=== PATIENT | female | born 1990 | race Hispanic/Latino ===

== ENCOUNTER 2019-04-09 22:04 | Emergency (ER) | payer OTHER ==
[~2019-04-09] VITALS: Ht 160 cm; Wt 53.1 kg
== END 2019-04-10 00:03 | disposition home or self-care (01) ==
LOC: ED 22:04
DX: O20.9 Hemorrhage in early pregnancy, unspecified (principal); Z3A.01 Less than 8 weeks gestation of pregnancy
CPT/HCPCS: 84702; 84703; 85025; 86900; 86901; 99284

== ENCOUNTER 2022-05-10 05:50 | Day surgery (SDC) | payer OTHER ==
--- NOTE | ~2022-05-10 | OR ---
[facility] [address] [facility] [place], [place] [address] Cancelled DICTATION CUT OFF, SEE TYPED OP REPORT /[id number] Copies: ~ PATIENT NAME: AYDE JOHNSON OPERATIVE REPORT DATE OF : 89 REPORT #: [id number] PHYSICIAN: JOSE BATISTA DO PCP: ABY CORNELIUS PA-C REPORT IS CONFIDENTIAL AND NOT TO BE RELEASED WITHOUT AUTHORIZATION
--- NOTE | 2022-05-10 08:31 | NUR ---
05/10/22 0831 Bing Henning 0757- PT ARRIVES TO PACU NONAROUSABLE TO STIMULI WITH AN OPA IN PLACE. RESP EVEN AND UNLABORED. OXYGEN SAT HIGH 90'S TO 100% ON 6L VIA MASK. 0801- PT NEEDING A JAW LIFT TO MAINTAIN PATENT AIRWAY. 0802- PT RESPONSIVE TO STIMULI. INSTRUCTED PT TO OPEN HER MOUTH TO REMOVE THE OPA. PT NEEDS TO BE TOLD THIS COMMAND A COUPLE OF TIMES BEFORE SHE WAS ABLE TO OPEN HER MOUTH TO REMOVE THE OPA. OXYGEN MASK REPLACED AT 6L. 0805- PT IS UPSET AND CRYING. HEART RATE INCREASING INTO THE 140'S TO 150'S. BP INCREASING INTO THE 110'S SYSTOLIC. 0806- OXYGEN TITRATED OFF. 0807- MD AND DRONE SOFTWARE DEVELOPMENT ENGINEER AT THE BEDSIDE TO SEE PT. NO NEW ORDERS AT THIS TIME. TALKING WITH PT ABOUT THE CASE. 0816- PT REMAINS CRYING OFF AND ON. ATTEMPTING TO CALM AND CONSOLE PT. PT HAS NO REQUESTS AT THIS TIME. PT STATES SHE IS NOT PHYSICALLY HURTING, STATES SHE IS UPSET.
== END 2022-05-10 09:10 | disposition home or self-care (01) ==
LOC: OPS 05:50 → DS 05:50 → OPS 07:30 → DS 12:30
PROVIDERS: ATTEND Obstetrics & Gynecology
PROC: 10D17ZZ Extraction of Products of Conception, Retained, Via Natural or Artificial Opening (ICD-10-PCS; principal; 2022-05-10 07:30)
DX: O02.1 Missed abortion (principal); O99.011 Anemia complicating pregnancy, first trimester
CPT/HCPCS: 36415; 85027; 85060; J0131; J1100; J1885; J2001; J2250; J2405; J2704; J3010; J7121